=== PATIENT | male | born 1965 | race African-American/Black ===

== ENCOUNTER 2020-09-12 04:37 | Day surgery (SDC) | payer OTHER ==
[2020-09-11 16:52] VITALS: BMI 35.9
[2020-09-12] MEDS ORDERED: PROPOFOL 0 ML ONE (12:02)
[2020-09-12] MEDS ORDERED: MIDAZOLAM HCL 2 MG/2 ML SINGLE DOSE VIAL ONE ×4 (12:02→12:55)
[2020-09-12] MEDS ORDERED: PROPOFOL 20 ML ONE ×2 (12:02→12:03)
[2020-09-12] MEDS ORDERED: ceFAZolin SODIUM 1 GM VIAL IVPB ONE (12:33)
[2020-09-12] MEDS ORDERED: ceFAZolin SODIUM 1 GM VIAL ONE (12:48)
[2020-09-12] MEDS ORDERED: GLYCOPYRROLATE 0.2 MG/1 ML VIAL ONE (13:41)
[2020-09-12] MEDS ORDERED: ePHEDrine SULFATE 50 MG/1 ML AMPULE ONE (13:43)
[2020-09-12] MEDS ORDERED: ONDANSETRON 4 MG/2 ML VIAL IVPUSH PRN (16:08)
[2020-09-12] MEDS ORDERED: oxyCODONE HCL 5 MG TABLET PO PRN (16:08)
[2020-09-12] MEDS ORDERED: LACTATED RINGERS SOLUTION 1,000 ML IV SCH (16:15)
[2020-09-12 17:28] VITALS: BP 140/84; PULSE 78; TEMP 97.4
== END 2020-09-12 17:48 | disposition home or self-care (01) ==
LOC: JASU-SURG 04:37
PROVIDERS: ATTEND Urology
PROC: 0V503ZZ Destruction of Prostate, Percutaneous Approach (ICD-10-PCS; principal; 2020-09-12 12:00)
DX: C61 Malignant neoplasm of prostate (principal)
CPT/HCPCS: 55873; C2618; 94760